=== PATIENT | female | born 1955 | race African-American/Black ===

== ENCOUNTER 2020-04-18 06:16 | Day surgery (SDC) | payer OTHER ==
[2020-04-11 13:36] VITALS: BMI 21.9
[2020-04-18] MEDS ORDERED: PROPOFOL 20 ML ONE (07:23)
[2020-04-18] MEDS ORDERED: MIDAZOLAM HCL 2 MG/2 ML SINGLE DOSE VIAL ONE (07:23)
[2020-04-18] MEDS ORDERED: ROCURONIUM BROMIDE 50 MG/5 ML SYRINGE ONE (07:23)
[2020-04-18] MEDS ORDERED: ceFAZolin SODIUM 1 GM VIAL ONE (07:36)
[2020-04-18] MEDS ORDERED: GENTAMICIN SO4 80 MG/2 ML VIAL ONE (07:36)
[2020-04-18] MEDS ORDERED: ONDANSETRON 4 MG/2 ML VIAL IVPUSH PRN (08:48)
[2020-04-18] MEDS ORDERED: oxyCODONE HCL 5 MG TABLET PO PRN ×3 (08:48→09:35)
[2020-04-18] MEDS ORDERED: BUPIVACAINE HCL/PF 2.5 MG/ML - 30 ML VIAL IJ ONE (08:50)
[2020-04-18] MEDS ORDERED: BUPIVACAINE HCL/PF 0.25% (2.5MG/ML) 10 ML VIAL IJ ONE (08:59)
[2020-04-18] MEDS ORDERED: LACTATED RINGERS SOLUTION 1,000 ML IV SCH ×2 (09:00→09:45)
[2020-04-18] MEDS ORDERED: ONDANSETRON 4 MG/2 ML VIAL IVPB PRN (09:35)
--- NOTE | 2020-04-18 09:39 | OP ---
Operative Note - Note: Operative Date: 04/18/20 Pre-Operative Diagnosis: left sided breast cancer Operation: left breast capsulectomy, removal of ruptured implant, revision of reconstructed breast Post-Operative Diagnosis: Same as Pre-op Anesthesia: General Drains & Tubes with Location: 1 left breast
[2020-04-18 10:58] VITALS: TEMP 97.9
[2020-04-18 11:35] VITALS: BP 112/72; PULSE 64
--- NOTE | 2020-04-18 15:12 | OP ---
DATE OF OPERATION: 04/18/2020 PROCEDURE: 1. Left reconstructed breast complete capsulectomy with removal of ruptured saline textured surface implant. 2. Revision of reconstructed left breast by removal of reconstructed nipple-areolar complex and skin revision of mastectomy flaps. ATTENDING SURGEON: Ana Rosa Jo MD ANESTHESIA: General endotracheal anesthesia. PREOPERATIVE DIAGNOSIS: Ruptured left saline reconstructed breast implant with patient requesting permanent removal of implant. POSTOPERATIVE DIAGNOSIS: Ruptured left saline reconstructed breast implant with patient requesting permanent removal of implant. DESCRIPTION OF OPERATION: Patient was marked in the holding area. Risks, benefits and alternatives to the procedure are understood and agreed to proceed. Patient brought to the operating room and placed in the supine position. Position was carefully checked by surgical and anesthesia teams. Sequential compression devices were applied preoperatively. After anesthesia was given, prepped and draped in standard surgical fashion. She received 2 g of Ancef IV. Timeout was called. Patient, procedure, side and sites were verified. An elliptical pattern was patterned around the reconstructed nipple-areolar complex. Adequate skin was identified for laxity and closure postoperatively. This element of nipple-areolar reconstruction as well as the mastectomy flaps was sent for pathology. Dissection was then carried down to the pectoralis major muscle. The mastectomy flaps were reelevated both superiorly and inferiorly to expose a wide enough area for the complete capsulectomy. Hemostasis was achieved and the interface between the acellular dermal matrix and the pectoralis major muscle was then incised exposing the anterior of the periprosthetic capsule and a ruptured textured surface saline implant. This ruptured implant was removed. A total capsulectomy was then performed meticulously with hemostasis performed meticulously as well. The surgical site was then copiously irrigated with normal saline. Hemostasis once again achieved. A side 10 flat NELLIE drain was brought out through a lateral stab wound incision, excising an existing scar from the reconstruction, which was also a portion of the revision of the reconstructed breast. That scar was then closed with a series of interrupted buried deep dermal 3-0 Monocryl suture followed by a series of interrupted 5-0 nylon suture. The drain itself was then secured with a 2-0 silk drain suture. The pectoralis major muscle was then secured to the deep fat of the inferior mastectomy flap with a running 3-0 Monocryl suture. The mastectomy flaps were then remobilized toward each other in order to provide a primary closure after excision of the nipple-areolar complex. The closure was performed with a series of interrupted buried deep dermal 3-0 Monocryl suture followed by a running subcuticular 3-0 Monocryl suture. Drain was placed to bulb suction. Dressings of 1/2-inch Steri-Strips, 4 x 4 gauze, ABD gauze, Hypafix tape and a breast binder were applied. Patient was awoken from anesthesia having tolerated the procedure well, transferred to recovery without complication. ANA ROSA JO M.D. [id number]
--- NOTE | 2020-04-20 16:56 | PATH ---
Surgical Pathology Report Patient Name: ALAN EVANS [facility]. Rec. #: [id number] /Age/Gender: 1955 (Age: 65) / F Account: [id number] Location: [facility] AMBULATORY Taken: 04/18/2020 Received: 04/18/2020 Reported: 04/20/2020 Physicians: Korey Mehta Specimen(s) Received A: LEFT BREAST SCAR TISSUE B: LEFT BREAST IMPLANT C: LEFT BREAST CAPSULE Clinical History Left breast cancer Final Diagnosis A. LEFT BREAST SCAR TISSUE, EXCISION PORTION OF SKIN WITH SCAR AND MILD CHRONIC INFLAMMATION. B. LEFT BREAST IMPLANT, REMOVAL: CONSISTENT WITH A BREAST IMPLANT. C. LEFT BREAST CAPSULE, EXCISION: CONSISTENT WITH FIBROUS CAPSULE. NEGATIVE FOR MALIGNANCY. Electronically Signed Parrish Ortez M.D. Gross Description A. Received in formalin labeled "left breast scar tissue," is an 8.5 x 1.7 cm de león-brown, elliptical, unoriented portion of skin excised to depth of 1.0 cm. The epidermal surface displays a central, linear, well-healed scar. [employer] sections are submitted in one cassette. B. Received fresh labeled "left breast implant," is a 12.0 x 10.5 x 0.5 cm deflated breast implant. No soft tissue is present. No sections are submitted, gross only. C. Received in formalin labeled "left breast capsule," is a 9.5 x 8.0 x 0.5 cm aggregate of multiple de león-brown portions of fibrous capsule. No discrete lesions are identified. Processing [employer] sections are submitted in one cassette. 04/19/2020 saudi04/19/2020
== END 2020-04-18 11:41 | disposition home or self-care (01) ==
LOC: FASU 06:16
PROVIDERS: ATTEND Plastic Surgery
PROC: 0HWU0JZ Revision of Synthetic Substitute in Left Breast, Open Approach (ICD-10-PCS; 2020-04-18)
PROC: 0HSXXZZ Reposition Left Nipple, External Approach (ICD-10-PCS; 2020-04-18)
PROC: 0HPU0JZ Removal of Synthetic Substitute from Left Breast, Open Approach (ICD-10-PCS; principal; 2020-04-18 08:18)
DX: T85.43XA Leakage of breast prosthesis and implant, initial encounter (principal); Y83.8 Other surgical procedures as the cause of abnormal reaction of the patient, or of later complication, without mention of misadventure at the time of the procedure; Y92.89 Other specified places as the place of occurrence of the external cause
CPT/HCPCS: 88300-TC; 88304-TC; 94760